=== PATIENT | male | born 1980 | race Caucasian/White ===

== ENCOUNTER 2021-11-04 19:20 | Emergency (ER) | payer SELFPAY | END 2021-11-04 21:00 | disposition home or self-care (01) | LOC: CC.ED 19:20 | DX: S06.0X0A Concussion without loss of consciousness, initial encounter (principal); S16.1XXA Strain of muscle, fascia and tendon at neck level, initial encounter; K11.8 Other diseases of salivary glands; W37.8XXA Explosion and rupture of other pressurized tire, pipe or hose, initial encounter | CPT/HCPCS: 36415; 70450; 71046; 72125; 80053; 85025; 99283-25; 99284 ==

== ENCOUNTER 2024-07-17 18:08 | Emergency (ER) | payer BC ==
[2024-07-17] MEDS: Take Home: Acetaminophen/HYDROcodone 325-5 MG, 2 Tab Pack PO ONE (19:28)
[2024-07-17] MEDS: Diphtheria,Pertussis(Acell),Tetanus Vaccine 0.5 ML Syringe IM ONE (19:31)
== END 2024-07-17 19:20 | disposition home or self-care (01) ==
LOC: CC.ED 18:08
DX: S67.194A Crushing injury of right ring finger, initial encounter (principal); S67.192A Crushing injury of right middle finger, initial encounter; W23.0XXA Caught, crushed, jammed, or pinched between moving objects, initial encounter; Z79.899 Other long term (current) drug therapy
CPT/HCPCS: 73130-RT; 90471; 90715; 99283-25; A9270-GY

== ENCOUNTER 2025-04-02 11:05 | Emergency (ER) | payer BC | END 2025-04-02 12:20 | disposition home or self-care (01) | LOC: CC.ED 11:05 | DX: S82.832A Other fracture of upper and lower end of left fibula, initial encounter for closed fracture (principal); S93.492A Sprain of other ligament of left ankle, initial encounter; F17.200 Nicotine dependence, unspecified, uncomplicated; Z79.899 Other long term (current) drug therapy; W18.42XA Slipping, tripping and stumbling without falling due to stepping into hole or opening, initial encounter | CPT/HCPCS: 73590-LT; 73610-LT; 99283 ==